=== PATIENT | male | born 1995 | race African-American/Black ===

== ENCOUNTER 2019-07-26 21:33 | Emergency (ER) | payer MEDICAID ==
[~2019-07-26] VITALS: Ht 177.8 cm; Wt 64.0 kg
[2019-07-26] MEDS ORDERED: IBUPROFEN 600MG TABLET PO ONE (22:15)
[2019-07-27 01:30] VITALS: BP 125/82
== END 2019-07-27 02:16 | disposition home or self-care (01) ==
LOC: ER 21:33
DX: R51 Headache (principal); M54.2 Cervicalgia; V49.49XA Driver injured in collision with other motor vehicles in traffic accident, initial encounter; Y93.89 Activity, other specified; Y92.89 Other specified places as the place of occurrence of the external cause; Y99.8 Other external cause status; F41.9 Anxiety disorder, unspecified
CPT/HCPCS: 99285